=== PATIENT | male | born 1960 | race Two or more races ===

== ENCOUNTER 2017-03-17 17:25 | Emergency (ER) | payer OTHER ==
[~2017-03-17] VITALS: Ht 177.8 cm; Wt 113.4 kg
[2017-03-17 17:28] VITALS: BP 143/84
[2017-03-17] MEDS ORDERED: CYCLOBENZAPRINE HCL 10 MG TAB PO ONE (21:15)
[2017-03-17] MEDS ORDERED: IBUPROFEN 600 MG TAB PO ONE (21:15)
== END 2017-03-17 22:00 | disposition home or self-care (01) ==
LOC: ER 17:33
DX: S46.811A Strain of other muscles, fascia and tendons at shoulder and upper arm level, right arm, initial encounter (principal); S46.912A Strain of unspecified muscle, fascia and tendon at shoulder and upper arm level, left arm, initial encounter; V49.49XA Driver injured in collision with other motor vehicles in traffic accident, initial encounter; Y93.89 Activity, other specified; Y99.8 Other external cause status; Y92.410 Unspecified street and highway as the place of occurrence of the external cause